=== PATIENT | female | born 1965 | race Caucasian/White ===

== ENCOUNTER 2020-04-28 07:32 | Day surgery (SDC) | payer OTHER, SELFPAY ==
--- NOTE | 2020-04-27 09:25 | HO.ANESPROP2 ---
HPI - Anesthesia Eval Consult details Narrative: 55yo F for Colonoscopy PMFSH Past Medical History Medical History Back pain Cancer Elevated cholesterol GERD (gastroesophageal reflux disease) History of anxiety Hx of insomnia Lab test negative for COVID-19 virus Liver problem Surgical History Surgical History H/O colonoscopy Hx of cholecystectomy Hx of shoulder surgery Hx of spinal surgery Meds Allergies Allergy/AdvReac Type Severity Reaction Status Date / Time hydrocodone Allergy Intermediate Itching Verified 04/26/20 09:54 oxycodone Allergy Intermediate itching Verified 04/26/20 09:53 tramadol Allergy Intermediate itching Verified 04/26/20 09:53 Home Medications Medication Instructions Recorded Confirmed Type omeprazole 1 cap PO DAILY 04/26/20 04/26/20 History Exam Exam Date and Time: April 27, 2020924 Pertinent Lab Results Pertinent Lab Results: Laboratory Tests 02/01/20 02/01/20 14:33 14:33 WBC 7.7 Hgb 14.6 Hct 44.0 Plt Count 246 Sodium 143 Potassium 3.8 Chloride 106 BUN 12 Creatinine 0.82 Assessment and Plan Assessment Anesthesia Assessment: Chart Reviewed
[2020-04-28 08:00] VITALS: BP 136/76; PULSE 60; RESP 18; TEMP 36; O2SAT 97; BMI 23.0
[2020-04-28] MEDS: Lactated Ringers 1,000 ML 100 ML IVCONT (08:19)
--- NOTE | 2020-04-28 08:39 | HO.ANESPROP2 ---
[facility] Past Medical History Medical History Back pain Cancer Elevated cholesterol GERD (gastroesophageal reflux disease) History of anxiety Hx of insomnia Lab test negative for COVID-19 virus Liver problem Surgical History Surgical History H/O colonoscopy Hx of cholecystectomy Hx of shoulder surgery Hx of spinal surgery Social History Social History Smoking Status: Never smoker Second Hand Smoke Exposure: No Use of substances other than those prescribed or required for medical reasons: No Advance Directives: No Advance Directives Information Provided: Yes (unknown) Meds Allergies Allergy/AdvReac Type Severity Reaction Status Date / Time hydrocodone Allergy Intermediate Itching Verified 04/26/20 09:54 oxycodone Allergy Intermediate itching Verified 04/26/20 09:53 tramadol Allergy Intermediate itching Verified 04/26/20 09:53 Home Medications Medication Instructions Recorded Confirmed Type omeprazole 1 cap PO DAILY 04/26/20 04/26/20 History Exam Exam Date and Time: April 28, 2020 0839 Height,Weight and Vital Signs: Height 5 ft 3 in Weight 58.967 kg Last Vital Signs Temp 96.8 F 04/28/20 08:00 Pulse 60 04/28/20 08:00 Resp 18 04/28/20 08:00 BP 136/76 04/28/20 08:00 Pulse Ox 97 04/28/20 08:00 Airway Mallampati Class: II TM Dist: >3cm Neck ROM: Full Loose/Missing/Broken Teeth: No Heart: rrr Lungs: clear Assessment and Plan Assessment Anesthesia Assessment: Anesthesia Plan Discussed and Chart Reviewed Final Anesthetic Review NPO: Yes ASA Class: II Final Preanesthetic Review: No Changes in Pt Med Stat, Meds/Allgs Chart Reviewed, Consent Obtained/Reviewed and Anes Risks/Benef Reviewed Patient Risk: Low Procedure Risk: Low Anesthetic Plan Anesthetic Plan: MAC: Disposition: Standard PACU
--- NOTE | 2020-04-28 08:39 | MHC.SHP ---
Pre-Procedural Eval Section A The patient is an INPATIENT: No The History & Physical has been completed within 30 days and I have reviewed it.: No Section B Chief Complaint: screening Details of Present Illness: Colon cancer screening, hx of colon polyps Relevant Family History (Specify if Yes): No Relevant Social History: None Present Medications: see Short Stay Collaborative assessment Medical History: Significant History ( GERD Chronic low back pain High cholesterol History of viral warts Insomnia Carpal tunnel syndrome Fatty liver History of skin cancer) History of Previous Operations: Relevant previous surgery/procedure and date(s) (hx of cholecystectomy 2019 colonoscopy- tubular adenoma- Dr. Woodward 12/13/2014 shoulder surgery 2005 spinal surgery 2007 or 2009 ) Allergies: Allergies Allergy/AdvReac Type Severity Reaction Status Date / Time hydrocodone Allergy Intermediate Itching Verified 04/26/20 09:54 oxycodone Allergy Intermediate itching Verified 04/26/20 09:53 tramadol Allergy Intermediate itching Verified 04/26/20 09:53 Review of Systems Sugical H&P ROS: Negative: Constitution, Cardiovascular, Respiratory and Gastrointestinal Exam Surgical H&P Exam: Normal: Heart, Normal: Lungs, Normal: Extremities and Normal: Abdomen Plan Diagnosis/Plan: Unchanged Patient has been examined and remains a candidate for the planned procedure
[2020-04-28 09:27] VITALS: BP 101/67; PULSE 63; RESP 20; TEMP 36.6; O2SAT 98
[2020-04-28 09:38] VITALS: BP 118/70; PULSE 58; RESP 14; O2SAT 100
--- NOTE | 2020-04-30 19:49 | W.PM.OPN ---
Operative Note Operative Note Narrative: Date of procedure: 04/30/20 Pre-op diagnosis: Colon cancer screening, history of colon polyps. Post-op diagnosis: other ( Colon polyp, diverticulosis, hemorrhoids) Procedure: COLONOSCOPY TILL CECUM WITH BIOPSIES Consent: Indications for the procedure and potential complications of bleeding, perforation, reaction to medications and missed diagnosis were discussed with the patient and informed consent was obtained. Instrument: Olympus PCF H 190 L variable stiffness pediatric colonoscope Monitoring: Vital signs and clinical assessment, intermittent blood pressure monitoring, continuous EKG monitoring, Pulse oximetry and Carbon Dioxide monitoring were done throughout the procedure. Colon withdrawl time was 11 minutes. Procedure: The patient was placed in the left lateral decubitis position and pre-procedure medications were administered. After a digital rectal examination of the ano-rectum, the video colonoscope was inserted into the rectum and advanced through the colon to the cecum. The colonoscope was slowly withdrawn in a retrograde panoramic fashion and the colon mucosa was carefully examined including a retroflexed view of the rectum. Findings and interventions are described below. Procedure Difficulty: Without difficulty Findings: Terminal Ileum: Not evaluated Cecum: a 3-4 mm diminutive appearing polyp opposite the ileocecal valve, removed with the cold biopsy Ascending Colon: moderate diverticulosis Transverse Colon: moderate diverticulosis Descending Colon: moderate diverticulosis Sigmoid Colon: Moderate diverticulosis Rectum: Normal Ano-rectum: small noninflamed internal hemorrhoids. Colon preparation: Good after some irrigation Impression and Post Procedure Diagnosis: Colonoscopy Findings: One diminutive polyp removed. Moderate diverticulosis seen in the entire colon Small hemorrhoids on retroflexed exam. Plan: Await pathology results Patient has an appointment on 05/15/20 in the [facility] with Gracie aRymond NP. Repeat Colonoscopy interval based on path results - in 5 years if polyps are adenomatous and due to past history of colon polyps. Above findings were reviewed with the patient and colon polyps and diverticulosis handouts were given in the discharge area Surgeon: Sharon Dennis MD Anesthesia: MAC (Dr Amin) Departmental Buyer: Gustavo Barrera Estimated blood loss (mL): 0 Pathology: other (A. Cecal polyp x 1) Condition: stable Disposition: PACU
== END 2020-04-28 10:30 | disposition home or self-care (01) ==
PROVIDERS: PCP Internal Medicine; Visit Provider Internal Medicine Gastroenterology
PROC: 0DJD8ZZ Inspection of Lower Intestinal Tract, Via Natural or Artificial Opening Endoscopic (ICD-10-PCS; CPT 45378; principal; 2020-04-28 08:30)
DX: Z12.11 Encounter for screening for malignant neoplasm of colon (principal); Z86.010 Personal history of colon polyps; D12.0 Benign neoplasm of cecum; K57.30 Diverticulosis of large intestine without perforation or abscess without bleeding; K64.8 Other hemorrhoids; K21.9 Gastro-esophageal reflux disease without esophagitis; K76.0 Fatty (change of) liver, not elsewhere classified; Z79.899 Other long term (current) drug therapy; Z90.49 Acquired absence of other specified parts of digestive tract; Z85.828 Personal history of other malignant neoplasm of skin; Z88.8 Allergy status to other drugs, medicaments and biological substances
CPT/HCPCS: 45380; 88305

== ENCOUNTER 2020-05-18 11:02 | Outpatient (REF) | payer OTHER, SELFPAY ==
[2020-05-18 11:23] LABS: COVID-19 Test Negative (Negative)
== END 2020-05-18 11:03 | disposition home or self-care (01) ==
LOC: HO.EMPCOV 11:02
PROVIDERS: PCP Internal Medicine; Visit Provider Internal Medicine
DX: Z20.828 Contact with and (suspected) exposure to other viral communicable diseases (principal)
CPT/HCPCS: 87635; C9803

== ENCOUNTER 2020-05-22 07:55 | Outpatient (REF) | payer OTHER, SELFPAY ==
[2020-05-22 09:33] LABS: COVID-19 Test Negative (Negative); IDNOW Serial# 55D5AD1C
== END 2020-05-22 07:56 | disposition home or self-care (01) ==
LOC: HO.EMPCOV 07:55
PROVIDERS: Visit Provider Internal Medicine
DX: Z20.828 Contact with and (suspected) exposure to other viral communicable diseases (principal)
CPT/HCPCS: 87635; C9803

== ENCOUNTER 2020-05-23 14:48 | Outpatient (REF) | payer OTHER, SELFPAY ==
[2020-05-23 15:29] LABS: COVID-19 Test Negative (Negative)
== END 2020-05-23 14:49 | disposition home or self-care (01) ==
LOC: HO.LAB 14:48
PROVIDERS: Visit Provider Internal Medicine
DX: Z20.828 Contact with and (suspected) exposure to other viral communicable diseases (principal)
CPT/HCPCS: 87635; C9803

== ENCOUNTER 2020-07-26 11:32 | Outpatient (REF) | payer SELFPAY ==
[2020-07-26 12:00] LABS: Cholesterol 267 mg/dL
== END 2020-07-26 11:33 | disposition home or self-care (01) ==
LOC: HO.LNC 11:32
PROVIDERS: Visit Provider Pathology Anatomic Pathology & Clinical Pathology
DX: Z13.89 Encounter for screening for other disorder (principal)
CPT/HCPCS: 36415; 82465

== ENCOUNTER 2020-08-24 09:42 | Outpatient (REF) | payer OTHER, SELFPAY ==
--- NOTE | ~2020-08-24 | MM_ITS ---
EXAMINATION: MM SCREENING DIGITAL BREAST TOMOSYNTHESIS, BILATERAL CLINICAL INFORMATION: Screening. Asymptomatic. The lifetime risk of breast cancer based on the Tyrer-Cuzick Model is 12.6%. COMPARISON: Mammography: April 22, 2019 and studies dating back to February 20, 2016 TECHNIQUE: Digital breast tomosynthesis is performed in both the craniocaudal and mediolateral oblique views along with computer-aided detection (CAD). Synthesized 2D images are generated from the tomosynthesis. FINDINGS: The breasts are heterogeneously dense, which may obscure small masses (ACR BI-RADS breast composition Category c). There are no significant masses, abnormal calcifications, or other abnormalities. MM/MM tomosynthesis screening BI IMPRESSION: There are no significant changes from prior study. ASSESSMENT: BI-RADS 1: Negative RECOMMENDATION: Routine annual mammography screening. This patient's information was entered into a reminder system with a target due date for their next mammogram.
== END 2020-08-24 09:43 | disposition home or self-care (01) ==
LOC: HO.MAMMO 09:42
PROVIDERS: Visit Provider Obstetrics & Gynecology
DX: Z12.31 Encounter for screening mammogram for malignant neoplasm of breast (principal)
CPT/HCPCS: 77063; 77067

== ENCOUNTER 2020-10-04 07:58 | Outpatient (REF) | payer OTHER, SELFPAY ==
[2020-10-04 09:54] LABS: Anion Gap 13 (12-20); Carbon Dioxide 28 mmol/L (22-29); Chloride 106 mmol/L (96-108); Estimated Glomerular Filt Rate > 60; Glucose Random 92 mg/dL (60-115); Potassium 4.2 mmol/L (3.3-5.1); Sodium 143 mmol/L (135-145)
[2020-10-04 10:01] LABS: Blood Urea Nitrogen 15 mg/dL (9-16); Calcium 9.2 mg/dL (8.4-10.2)
== END 2020-10-04 07:59 | disposition home or self-care (01) ==
LOC: HO.LAB 07:58
PROVIDERS: PCP Internal Medicine; Visit Provider Internal Medicine
DX: M54.16 Radiculopathy, lumbar region (principal); R10.11 Right upper quadrant pain
CPT/HCPCS: 36415; 80048

== ENCOUNTER 2020-10-05 07:22 | Outpatient (REF) | payer OTHER, SELFPAY ==
--- NOTE | ~2020-10-05 | MR_ITS ---
EXAMINATION: MR LUMBAR SPINE WITHOUT CONTRAST CLINICAL INFORMATION: Lower back pain. Right leg numbness. Symptoms for 4-6 months, intermittently. L5-S1 fusion in 2008. COMPARISON: Report from an outside lumbar spine MRI dated 06/15/2018. No images available for comparison at the time of interpretation. TECHNIQUE: MRI of the lumbar spine was obtained using routine sequences without contrast. FINDINGS: VERTEBRAL BODIES AND PARASPINAL STRUCTURES: The lumbar lordosis is maintained. Minimal grade 1 anterolisthesis of L5 on S1 measuring approximately 0.2 cm. Postsurgical changes at L5-S1 including posterior stabilization hardware and intervertebral disc hardware. No loss of vertebral body height. Loss of intervertebral disc height with disc desiccation and Modic type II degenerative endplate changes at T12-L1. No additional abnormal marrow signal. The visualized paraspinal soft tissues are unremarkable. CONUS MEDULLARIS AND CAUDA EQUINA: Normal, terminating at the level of the T12-L1 intervertebral disc. SPINAL LEVELS: T12-L1: Shallow broad-based disc bulge with bilateral facet arthropathy. No significant central canal or neural foraminal stenosis. L1-L2: No significant disc bulge. No central canal or neural foraminal stenosis. L2-L3: No significant disc bulge. No central canal or neural foraminal stenosis. L3-L4: Minimal disc bulge with bilateral facet arthropathy and thickening of ligamentum flavum. Mild bilateral neural foraminal stenosis. L4-L5: Shallow broad-based disc bulge and posterior central disc protrusion with posterior annular fissuring. Bilateral facet arthropathy and thickening of ligamentum flavum with mild bilateral neural foraminal stenosis. L5-S1: Postsurgical changes including posterior laminectomy as well as left-sided transpedicular screws. No significant disc bulge. Prominent bilateral facet arthropathy without central canal or neural foraminal stenosis. MR/MR lumbar spine wo con IMPRESSION: 1. Postsurgical changes at L5-S1 including posterior laminectomy and left-sided stabilization hardware. No evidence of hardware complication. Minimal grade 1 anterolisthesis of L5-S1. No significant disc bulge, central canal, or neural foraminal stenosis. 2. Shallow broad-based disc bulge at L4-L5 with a posterior central disc protrusion and posterior annular fissuring. In combination with bilateral facet arthropathy and thickening of ligamentum flavum this causes bilateral neural foraminal stenosis. 3. Minimal disc bulge at L3-L4 bilateral facet arthropathy and thickening of the ligamentum flavum causing mild bilateral neural foraminal stenosis.
== END 2020-10-05 07:23 | disposition home or self-care (01) ==
LOC: HO.MRI 07:22
PROVIDERS: PCP Internal Medicine; Visit Provider Internal Medicine
DX: M54.5 Low back pain (principal); M25.462 Effusion, left knee; M25.461 Effusion, right knee
CPT/HCPCS: 72148

== ENCOUNTER 2020-10-12 09:29 | Outpatient (REF) | payer OTHER, SELFPAY ==
--- NOTE | ~2020-10-12 | CT_ITS ---
EXAMINATION: CT ABDOMEN WITH CONTRAST CLINICAL INFORMATION: Right upper quadrant pain COMPARISON: Previous abdominal ultrasound January 2020 TECHNIQUE: Contiguous axial thin section helical images of the abdomen were performed following the administration of oral contrast and 85 mL of Omnipaque 350 intravenous contrast. The data set was reformatted in the coronal and sagittal planes and reviewed on an independent workstation. This CT examination was performed using dose optimization techniques as appropriate, variously including the following: *Automated exposure control *Adjustment of mA and/or kV according to patient size (this includes techniques or standardized protocols for targeted exams where dose is matched to indication/reason for exam; i.e. extremities or head) *Use of iterative reconstruction technique DLP: 141 mGy-cm FINDINGS: LUNG BASES: Lung bases are clear. LIVER, GALLBLADDER, AND BILIARY TREE: The liver is normal appearing. The gallbladder is been removed. There is no biliary duct dilatation. PANCREAS: Normal SPLEEN: Normal ADRENAL GLANDS AND KIDNEYS: Normal BOWEL LOOPS: There is question of mild wall thickening versus changes due to underdistention of the right colon. The visualized small and large bowel is otherwise unremarkable. The stomach is unremarkable. LYMPH NODES: Normal. VASCULAR: Unremarkable. BONES: There are postoperative changes at L5-S1. CT/CT abdomen w con IMPRESSION: Question mild wall thickening of the right colon versus changes due to underdistention. Otherwise unremarkable exam.
[2020-10-12] MEDS: iohexoL 350 MG/ML 100 ML INFUS..BTL IV (11:21)
== END 2020-10-12 09:30 | disposition home or self-care (01) ==
LOC: HO.CT 09:29
PROVIDERS: Visit Provider Internal Medicine
DX: R10.10 Upper abdominal pain, unspecified (principal)
CPT/HCPCS: 74160; Q9967